=== PATIENT | male | born 1955 | race Caucasian/White ===

== ENCOUNTER → 2017-10-21 | Outpatient (CLI) | payer BC ==
[~2017-10-21] MED LIST: ATOR20TA22 PO; DICL-195 PO; LISI-347 PO; LOR5 PO; LOSA-38 PO; METF-421 PO; MULT-865 PO; NO ROUTINE MEDS; [UNRECOGNIZED DRUG - SUPPLY]
== END ==
LOC: LAB 10:52
PROVIDERS: ATTEND Internal Medicine
DX: E83.52 Hypercalcemia (principal)
CPT/HCPCS: 36415; 82306; 82330; 83970

== ENCOUNTER → 2017-11-26 | Outpatient (CLI) | payer BC ==
[~2017-11-26] MED LIST changes: +LOSA100T67 PO
== END ==
LOC: LAB 10:36
PROVIDERS: ATTEND Internal Medicine
DX: E83.52 Hypercalcemia (principal); I10 Essential (primary) hypertension; E78.5 Hyperlipidemia, unspecified; E11.9 Type 2 diabetes mellitus without complications
CPT/HCPCS: 36415; 82040; 82247; 82310; 82330; 82374; 82435; 82565; 82947; 84075; 84132; 84155; 84165; 84295; 84450; 84460; 84520

== ENCOUNTER 2017-12-31 15:00 | Outpatient (RCR) | payer BC ==
[2017-12-31 14:58] VITALS: BP 149/94
[~2017-12-31 15:00] MED LIST changes: -LOSA100T67 PO; +LOSA100T69 PO; -METF-421 PO; +METF-452 PO
--- NOTE | 2017-12-31 17:32 | ONCOLOGY CONSULTATION ---
EVENT DATE: December 31, 2017 REFERRING PHYSICIAN Tomasz Pulido MD REASON FOR CONSULTATION Evaluation and management of hypercalcemia. HEMATOLOGY/ONCOLOGY HISTORY Patient is a 62-year-old male with past medical history of hypertension, type 2 diabetes, hypercholesterolemia, obstructive sleep apnea who was taking losartan and hydrochlorothiazide for his blood pressure. Patient was found lately to have high calcium at 10.8 and it was thought that hydrochlorothiazide is the reason for this high calcium, so hydrochlorothiazide was discontinued and on repeating his calcium level, his calcium level dropped to 10.4. Patient read about his hypercalcemia to see if it has any relationship with diet, and the patient actually was drinking about a gallon of milk a week, and at the same time he was taking also antacids, so the patient actually modified his diet and stopped antacids, and his calcium level dropped after that to 10, which is within the normal range. His intact parathormone level was normal at 32. His ionized calcium was slightly elevated at 1.5, and vitamin D level was normal at 37. PAST MEDICAL HISTORY 1. Obstructive sleep apnea. 2. Type 2 diabetes mellitus. 3. Hypertension. 4. Hypercholesterolemia. 5. History of fractured right ankle. PAST SURGICAL HISTORY 1. Hernia repair as an infant x2. 2. 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 3. Tonsillectomy. FAMILY HISTORY Mother with what looks like was lung cancer. Father had throat cancer. Sister with uterine cancer. Brother had melanoma. SOCIAL HISTORY Patient is with no children. He is a retired automation lead. He drinks 1-2 beers a week. Denies any abuse of tobacco or illicit drugs. CURRENT MEDICATIONS 1. Losartan 100 mg daily. 2. Diclofenac 75 mg daily as needed for pain. 3. Metformin 1000 mg daily, to alternate with two tablets a day. 4. Atorvastatin 20 mg daily. ALLERGIES PENICILLIN, which causes skin rash. REVIEW OF SYSTEMS CONSTITUTIONAL: No appetite or weight change. No fever, chills or sweating. No recent infection. HEENT: Ears: No tinnitus or hearing problem. Nose: No nasal discharge or epistaxis. Throat: No sore throat or mouth ulcers. Eyes: No diplopia or visual changes. RESPIRATORY: No shortness of breath. No cough, expectoration or hemoptysis. CARDIOVASCULAR: No chest pain, orthopnea, or paroxysmal nocturnal dyspnea (PND). No edema. No palpitations. GASTROINTESTINAL: No nausea or vomiting. No diarrhea or constipation. No change in bowel movements. No heartburn or swallowing difficulties. No abdominal pain. No jaundice. No hematemesis, melena or rectal bleeding. GENITOURINARY: No hematuria or dysuria. MUSCULOSKELETAL: He has pain in the ankles, knees, elbows, wrists, back from arthritis. NEUROLOGICAL: He has tingling and numbness in the fingers sometimes. No headaches or convulsions. HEMATOLOGIC/LYMPHATIC: No bleeding or easy bruising. No weakness or fatigue. No enlarged lymph nodes. SKIN: No skin rash or lumps. PSYCHIATRIC: No anxiety or depression. PHYSICAL EXAMINATION GENERAL: Looks stable. Well-developed, well-nourished, and in no acute distress. VITAL SIGNS: Blood pressure 149/94, pulse 104 per minute, respirations 16 per minute, temperature 99, pulse ox 89% on room air. HEENT: Head: Atraumatic. No sinus tenderness to palpation. Eyes: No icterus or conjunctivitis. Mouth and Throat: No oral thrush or mucositis. NECK: Supple. No cervical or supraclavicular lymphadenopathy. LUNGS: Clear to auscultation and percussion bilaterally. HEART: Regular rate and rhythm. No gallops, murmurs, clicks or rubs. ABDOMEN: Soft and lax. No tenderness. No hepatosplenomegaly. No masses. EXTREMITIES: No cyanosis, clubbing or edema. LYMPHATICS: No peripheral lymphadenopathy. NEUROLOGICAL: Conscious, alert and oriented times three. No focal motor or sensory deficits. PSYCHIATRIC: Mood and affect appear normal. SKIN: No skin rash, bruise or purpuric eruption. ASSESSMENT Hypercalcemia, most probably due to the use of hydrochlorothiazide, and dietary due to the use excess dairy products with milk and antacids. When the patient discontinued his hydrochlorothiazide as per the direction of Dr. Pulido, his calcium dropped from 10.8 to 10.4, and after that the patient modified his diet, so he decreased milk intake and antacids and after that his calcium dropped again to 10, which is within the upper range of normal. I am planning to check is calcium level again today, and if it remains normal then no further workup is required, and the reason for his hypercalcemia is most probably dietary and hydrochlorothiazide. His intact parathormone was normal at 32, ruling out the possibility of hyperparathyroidism. If the calcium remains high I will see the patient in a week to decide about further evaluation and management, but if it is normal I will refer the patient back to Dr. Pulido. PLAN 1. Check basic metabolic profile today. 2. Consider referral back to Dr. Pulido if the calcium level will come normal today. 3. Consider further evaluation and management if the calcium level will come high after we will check it today. 4. Patient is to contact us for any new concerns or complaints. JEANETTE
== END 2018-03-30 ==
LOC: ONC 15:00
PROVIDERS: ATTEND Internal Medicine Hematology
DX: E83.52 Hypercalcemia (principal); E11.9 Type 2 diabetes mellitus without complications; Z79.899 Other long term (current) drug therapy
CPT/HCPCS: 36415; 82310; 82374; 82435; 82565; 82947; 84132; 84295; 84520; 99202

== ENCOUNTER 2018-05-12 14:20 | Outpatient (RCR) | payer BC ==
[2018-04-22 10:26] VITALS: BP 148/92
--- NOTE | 2018-04-22 12:34 | [facility] ONCOLOGY NOTE ---
EVENT DATE: April 22, 2018 DIAGNOSIS Hypercalcemia. CHIEF COMPLAINT Patient is here today for followup of his hypercalcemia. HEMATOLOGY/ONCOLOGY HISTORY Patient is a 63-year-old male with past medical history of hypertension, type 2 diabetes, hypercholesterolemia, obstructive sleep apnea who was taking losartan and hydrochlorothiazide for his blood pressure. Patient was found lately to have high calcium at 10.8 and it was thought that hydrochlorothiazide is the reason for this high calcium, so hydrochlorothiazide was discontinued and on repeating his calcium level, his calcium level dropped to 10.4. Patient read about his hypercalcemia to see if it has any relationship with diet, and the patient actually was drinking about a gallon of milk a week, and at the same time he was taking also antacids, so the patient actually modified his diet and stopped antacids, and his calcium level dropped after that to 10, which is within the normal range. His intact parathormone level was normal at 32. His ionized calcium was slightly elevated at 1.5, and vitamin D level was normal at 37. HISTORY OF PRESENT ILLNESS Patient is here today for followup of his hypercalcemia. He is totally asymptomatic. He tried to decrease his daily Plavix and his blood pressure medication changed and hydrochlorothiazide was discontinued. PAST MEDICAL HISTORY 1. Obstructive sleep apnea. 2. Type 2 diabetes mellitus. 3. Hypertension. 4. Hypercholesterolemia. 5. History of fractured right ankle. PAST SURGICAL HISTORY 1. Hernia repair as an infant x2. 2. 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 3. Tonsillectomy. FAMILY HISTORY Mother with what looks like was lung cancer. Father had throat cancer. Sister with uterine cancer. Brother had melanoma. SOCIAL HISTORY Patient is with no children. He is a retired auto painter helper. He drinks 1-2 beers a week. Denies any abuse of tobacco or illicit drugs. CURRENT MEDICATIONS 1. Losartan 100 mg daily. 2. Diclofenac 75 mg daily as needed for pain. 3. Metformin 1000 mg daily, to alternate with two tablets a day. 4. Atorvastatin 20 mg daily. ALLERGIES PENICILLIN, which causes skin rash. REVIEW OF SYSTEMS CONSTITUTIONAL: No appetite or weight change. No fever, chills or sweating. No recent infection. HEENT: Ears: No tinnitus or hearing problem. Nose: No nasal discharge or epistaxis. Throat: No sore throat or mouth ulcers. Eyes: No diplopia or visual changes. RESPIRATORY: No shortness of breath. No cough, expectoration or hemoptysis. CARDIOVASCULAR: No chest pain, orthopnea, or paroxysmal nocturnal dyspnea (PND). No edema. No palpitations. GASTROINTESTINAL: No nausea or vomiting. No diarrhea or constipation. No change in bowel movements. No heartburn or swallowing difficulties. No abdominal pain. No jaundice. No hematemesis, melena or rectal bleeding. GENITOURINARY: No hematuria or dysuria. MUSCULOSKELETAL: He has pain in the ankles, knees, elbows, wrists, back from arthritis. NEUROLOGICAL: He has tingling and numbness in the fingers sometimes. No headaches or convulsions. HEMATOLOGIC/LYMPHATIC: No bleeding or easy bruising. No weakness or fatigue. No enlarged lymph nodes. SKIN: No skin rash or lumps. PSYCHIATRIC: No anxiety or depression. PHYSICAL EXAMINATION GENERAL: Looks stable. Well-developed, well-nourished, and in no acute distress. VITAL SIGNS: Blood pressure 148/92, pulse 89 per minute, respirations 16 per minute, temperature 97.6, pulse ox 90% on room air. HEENT: Head: Atraumatic. No sinus tenderness to palpation. Eyes: No icterus or conjunctivitis. Mouth and Throat: No oral thrush or mucositis. NECK: Supple. No cervical or supraclavicular lymphadenopathy. LUNGS: Clear to auscultation and percussion bilaterally. HEART: Regular rate and rhythm. No gallops, murmurs, clicks or rubs. ABDOMEN: Soft and lax. No tenderness. No hepatosplenomegaly. No masses. EXTREMITIES: No cyanosis, clubbing or edema. LYMPHATICS: No peripheral lymphadenopathy. NEUROLOGICAL: Conscious, alert and oriented times three. No focal motor or sensory deficits. PSYCHIATRIC: Mood and affect appear normal. SKIN: No skin rash, bruise or purpuric eruption. DIAGNOSTIC DATA Chem panel is totally normal except blood sugar 120 and calcium 10.6. Albumin 4.9. ALT 47, gamma GT 83. ASSESSMENT Hypercalcemia, most probably due to the use of hydrochlorothiazide and dietary due to the use excess dairy products with milk and antacids but patient quit hydrochlorothiazide and his blood pressure medication was changed to another treatment and he decreased also milk in his diet but his current calcium is still high at 10.6. Given this information, I am planning to check his intact parathormone again, parathormone-related peptide, check 25-hydroxy vitamin D and 1,25 dihydroxy vitamin D. Further evaluation and management will depend on the results of those tests. I talked to the patient about that and he is agreeable with the plan of management. I am planning to see him in a week or two to discuss the results and what we are going to do in the future. PLAN 1. Intact parathormone. 2. Parathormone-related peptide. 3. 25-Hydroxy vitamin D. 4. 1,25 dihydroxy vitamin D. 5. Patient to return in one to two weeks for further evaluation and management. 6. Patient to contact us for any new concerns or complaints. JEANETTE
[2018-05-04 11:40] VITALS: BP 168/93
[~2018-05-12 14:20] MED LIST changes: -LOSA100T69 PO; +LOSA100T75 PO
[2018-05-12 14:30] VITALS: BP 158/92
--- NOTE | 2018-05-12 22:21 | [facility] ONCOLOGY NOTE ---
EVENT DATE: May 12, 2018 DIAGNOSIS Hypercalcemia. CHIEF COMPLAINT Patient is here today for followup of his hypercalcemia. HEMATOLOGY/ONCOLOGY HISTORY Patient is a 63-year-old male with past medical history of hypertension, type 2 diabetes, hypercholesterolemia, and obstructive sleep apnea who was taking losartan and hydrochlorothiazide for his blood pressure. Patient was found lately to have high calcium at 10.8, and it was thought that hydrochlorothiazide is the reason for this high calcium, so hydrochlorothiazide was discontinued. On repeating his calcium level, his calcium level dropped to 10.4. Patient read about his hypercalcemia to see if it has any relationship with diet, and the patient actually was drinking about a gallon of milk a week, and at the same time, he was taking also antacids, so the patient actually modified his diet and stopped antacids, and his calcium level dropped after that to 10, which is within the normal range. His intact parathormone level was normal at 32. His ionized calcium was slightly elevated at 1.5, and vitamin D level was normal at 37. Current vitamin D level is normal at 40, 1,25-vitamin D level is normal at 39.7, and intact parathyroid hormone level is normal at 39. HISTORY OF PRESENT ILLNESS Patient is here today for followup of his hypercalcemia. He quit taking vitamin supplement with calcium for the last two to three weeks. He has occasional diarrhea. He has pain in the groin after a fall, but other than that, he is really doing very well. PAST MEDICAL HISTORY 1. Obstructive sleep apnea. 2. Type 2 diabetes mellitus. 3. Hypertension. 4. Hypercholesterolemia. 5. History of fractured right ankle. PAST SURGICAL HISTORY 1. Hernia repair as an times two. 2. 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 3. Tonsillectomy. FAMILY HISTORY Mother with what looks like was lung cancer. Father had throat cancer. Sister with uterine cancer. Brother had melanoma. SOCIAL HISTORY Patient is with no children. He is a retired automobile rental clerk. He drinks one to two beers a week. Denies any abuse of tobacco or illicit drugs. CURRENT MEDICATIONS 1. Losartan 100 mg daily. 2. Diclofenac 75 mg daily as needed for pain. 3. Metformin 1000 mg daily, to alternate with two tablets a day. 4. Atorvastatin 20 mg daily. ALLERGIES PENICILLIN, which causes skin rash. REVIEW OF SYSTEMS CONSTITUTIONAL: No appetite or weight change. No fever, chills, or sweating. No recent infection. HEENT: Ears: No tinnitus or hearing problem. Nose: No nasal discharge or epistaxis. Throat: No sore throat or mouth ulcers. Eyes: No diplopia or visual changes. RESPIRATORY: No shortness of breath. No cough, expectoration, or hemoptysis. CARDIOVASCULAR: No chest pain, orthopnea, or paroxysmal nocturnal dyspnea (PND). No edema. No palpitations. GASTROINTESTINAL: No nausea or vomiting. Patient has occasional diarrhea. No constipation. No change in bowel movements. No heartburn or swallowing difficulties. No abdominal pain. No jaundice. No hematemesis, melena, or rectal bleeding. GENITOURINARY: No hematuria or dysuria. MUSCULOSKELETAL: He has pain in the groin after a fall. NEUROLOGICAL: No tingling or numbness in the hands or feet. No headaches or convulsions. HEMATOLOGIC/LYMPHATIC: No bleeding or easy bruising. No weakness or fatigue. No enlarged lymph nodes. SKIN: No skin rash or lumps. PSYCHIATRIC: No anxiety or depression. PHYSICAL EXAMINATION GENERAL: Looks stable. Well developed, well nourished, and in no acute distress. VITAL SIGNS: Blood pressure 158/92, pulse 91 per minute, respirations 16 per minute, temperature 97.3, pulse ox 90% on room air. HEENT: Head: Atraumatic. No sinus tenderness to palpation. Eyes: No icterus or conjunctivitis. Mouth and throat: No oral thrush or mucositis. NECK: Supple. No cervical or supraclavicular lymphadenopathy. LUNGS: Clear to auscultation and percussion bilaterally. HEART: Regular rate and rhythm. No gallops, murmurs, clicks, or rubs. ABDOMEN: Soft and lax. No tenderness. No hepatosplenomegaly. No masses. EXTREMITIES: No cyanosis, clubbing, or edema. LYMPHATICS: No peripheral lymphadenopathy. NEUROLOGICAL: Conscious, alert, and oriented times three. No focal motor or sensory deficits. PSYCHIATRIC: Mood and affect appear normal. SKIN: No skin rash, bruise, or purpuric eruption. DIAGNOSTIC DATA Vitamin D is normal at 40, and 1,25-vitamin D level is normal at 39.7. Intact parathyroid hormone level is normal at 39. Parathyroid hormone-related peptide is still pending. ASSESSMENT Hypercalcemia, most probably due to use of hydrochlorothiazide and dietary due to the use excess dairy products with milk and antacids, but patient quit hydrochlorothiazide, and his blood pressure medication was changed to another treatment. He decreased also milk in his diet, but his calcium remained high at 10.6. Vitamin D level is normal at 40, 1,25-dihydroxyvitamin D is normal at 39.7, and intact parathyroid hormone level is normal at 39. Parathyroid hormone-related peptide level is still pending. Patient quit supplement containing calcium supplement, so for this reason, I am planning to repeat his chemistry panel and ionized calcium in a week from now, and I will await the result of the parathyroid hormone-related peptide which is still pending. I will see him in three months with another chemistry panel or sooner if the test comes back positive for parathyroid hormone-related peptide. PLAN 1. Patient to continue followup. 2. Patient to return in three months with chem panel. 3. Check chem panel and ionized calcium in one week. 4. I await the result of the parathyroid hormone-related peptide. 5. Patient to contact us for any new concerns or complaints. JEANETTE
== END 2018-07-21 ==
LOC: ONC 14:20
PROVIDERS: ATTEND Internal Medicine Hematology
DX: E83.52 Hypercalcemia (principal); E11.9 Type 2 diabetes mellitus without complications; Z79.899 Other long term (current) drug therapy; I10 Essential (primary) hypertension; G47.33 Obstructive sleep apnea (adult) (pediatric)
CPT/HCPCS: 36415; 82306; 82652; 83519; 83970; 99212

== ENCOUNTER 2018-08-18 16:26 | Outpatient (RCR) | payer BC | END 2018-08-22 13:53 | disposition home or self-care (01) | LOC: ONC 16:26 | PROVIDERS: ATTEND Internal Medicine Hematology | DX: E83.52 Hypercalcemia (principal) ==